=== PATIENT | female | born 1960 | race Caucasian/White ===

== ENCOUNTER → 2017-02-19 | Day surgery (SDC) | payer OTHER ==
[~2017-02-19] VITALS: Ht 167.6 cm; Wt 75.3 kg
[~2017-02-19] MED LIST: ATOR40TA PO; BUPIVACAINE-EPI 0.5%-1:200000 50 ML VIAL. ONE; CHOL100013 PO; CRESTOR10 MG PO; DEXAMETHASONE SOD PHOS 20 MG/5 ML VIAL. ONE; FAMOTIDINE 20 MG/2 ML VIAL ONE; GLYCOPYRROLATE 1 MG/5 ML VIAL. ONE; HYDR-971 PO; HYDROmorphone 2 MG/ML VIAL IV PRN; IV RINGERS,LACTATED 1000ML 1,000 ML IV SCH; LIDOCAINE 1% 1 ML SYRINGE. ID PRN; LIDOCAINE 2% PF Vial for OR 5 ML VIAL. ONE; MIDAZOLAM HCL/PF 2 MG/2 ML VIAL. ONE; MORPHINE SULFATE 2 MG/ML DISP.SYRIN. IV PRN; NEOSTIGMINE METHYLSULFATE 5 MG/5 ML SYRINGE. ONE; ONDANSETRON PF 4 MG/2 ML VIAL. IV PRN; ONDANSETRON PF 4 MG/2 ML VIAL. ONE; PROCHLORPERAZINE 10 MG/2 ML VIAL. IV PRN; PROPOFOL 0 ML IV ONE; PROPOFOL 20 ML IV ONE; SEVOFLURANE 31 TO 60 MINUTES. IH ONE; diphenhydrAMINE 50 MG/ML VIAL ONE; fentaNYL PF VIAL 100 MCG/2 ML VIAL IV PRN; fentaNYL PF VIAL 100 MCG/2 ML VIAL ONE
[2017-02-19 11:54] VITALS: BP 134/65
--- NOTE | 2017-02-19 14:49 | OP ---
DATE OF SURGERY: 02/19/2017 DATE OF SERVICE: 02/19/2017 PREOPERATIVE DIAGNOSES: 1. Chest wall lipoma. 2. Left upper quadrant subcutaneous mass of the abdominal wall. POSTOPERATIVE DIAGNOSES: 1. Chest wall lipoma. 2. Left upper quadrant subcutaneous mass of the abdominal wall. PROCEDURE: 1. Removal of 5 x 3.5 cm chest wall lipoma. 2. Removal of 4.5 x 3 cm left upper quadrant subcutaneous mass. SURGEON: Oracio Noguera MD ANESTHESIA: General. ESTIMATED BLOOD LOSS: See anesthesia record. IV FLUIDS: See anesthesia record. INDICATIONS: The patient is a very pleasant 56-year-old female who presents with the above named masses. She would like to have them excised. DESCRIPTION OF PROCEDURE: After informed consent was obtained, the patient was taken to the operating room and placed in supine position. The sites had been marked with the patient's assistance preoperatively. After adequate induction of general anesthesia, she was prepped and draped in usual sterile fashion. The skin overlying the left upper quadrant subcutaneous mass was injected with local anesthetic. Skin incision was made and the mass was then dissected out circumferentially with cautery. It dissected away from the surrounding tissues easily. It was sent to pathology for examination. It was measured, it measured 4.5 x 3 cm. The wound was irrigated. It was then closed in layers. Bautista's layer was closed with 3-0 Vicryl in a running fashion. Skin was closed with 4-0 Monocryl in subcuticular fashion. Sterile dressings were placed, which consisted of Mastisol, Steri-Strips, and ____ dressing. Then the attention was turned to the chest wall lipoma. This was at the lower edge of the sternum. Skin incision was injected with local anesthetic. Skin incision was made, subcutaneous tissues divided with cautery. The lipoma was encountered. It was dissected out with cautery as well bluntly. It was less well defined, but was able to be dissected out in its entirety. It was sent to pathology for examination. It measured 5 x 3.5 cm. The wound was irrigated. It was hemostatic. It was closed in layers, deep layer was closed with 3-0 Vicryl in running fashion. Skin was closed with 4-0 Monocryl in subcuticular fashion. Sterile dressings were placed. She tolerated the procedure well. There were no apparent complications. She was transferred in stable condition to recovery room. ORACIO NOGUERA MD DR: MARYANA/andi JOB#: [id number] / [id number] CHICHI Andrade MD
--- NOTE | 2017-02-22 14:26 | PATHOLOGY ---
PATHOLOGY REPORT * * * * * * * * FINAL DIAGNOSIS: A. Fibroadipose tissue, chest wall: - Lipoma. B. Fibroadipose tissue, left upper quadrant mass: - Fat necrosis. Comment: There is no evidence of malignancy. (JPM:pit; 02/22/2017) REPORT ELECTRONICALLY SIGNED BY: J Carlos Marc M.D. DATE/TIME: 02/22/2017 14:25 * * * * * * * * GROSS PATHOLOGY: A. Received in formalin labeled "Seng Roldan, chest wall lipoma," is a segment of lobulated fibroadipose tissue measuring 4.0 x 3.5 x 1.5 cm in maximum dimensions. Sectioning reveals homogeneous, bright yellow cut surfaces. Machine Tack Puller tissue is submitted in cassette A1. B. Received in formalin labeled "Seng Roldan, left upper quadrant mass," is a segment of lobulated fibroadipose tissue measuring 3.7 x 2.5 x 2.0 cm in maximum dimensions. Sectioning reveals bright yellow, focally indurated appearance consistent with fat necrosis. Machine Tack Puller tissue is submitted in cassette B1. (JW; 02/19/2017) INITIAL CPT CODE(S): A; 21070 B; 72917 Professional services performed [place] [email or web address] [place] [address] Technical services performed by [facility] at [address] [place] [address] [address], [place] [address]. SPECIMEN(S) RECEIVED: A.Chest wall lipoma 5 x 3.5 cm B.LUQ mass 4.5 x 3 cm CLINICAL HISTORY: LUQ subcutaneous mass, lipoma of anterior chest wall PATIENT: SENG ROLDAN /AGE: 208/06/1960 (Age: 56) PATIENT #: [id number] ALT CASE #: SPECIMEN COLLECTION DATE: 02/19/2017 SPECIMEN RECEIVED DATE: 02/19/2017 [facility] - [address] [place] [address] - PHONE: [phone] * * * END OF REPORT * * *
== END | disposition home or self-care (01) ==
LOC: SURG 07:57
PROVIDERS: ATTEND Surgery
DX: D17.1 Benign lipomatous neoplasm of skin and subcutaneous tissue of trunk (principal); E78.00 Pure hypercholesterolemia, unspecified; Z72.89 Other problems related to lifestyle; Z88.2 Allergy status to sulfonamides; Z91.013 Allergy to seafood
CPT/HCPCS: 11406; 12034; J0690; J1100; J1200; J2250; J2405; J2704; J2710; J3010; J3490; S0028; 88304; J2001

== ENCOUNTER → 2017-03-11 | Outpatient (CLI) | payer OTHER ==
[2017-02-19 11:54] VITALS: BP 134/65
[~2017-03-11] MED LIST changes: -BUPIVACAINE-EPI 0.5%-1:200000 50 ML VIAL. ONE; -DEXAMETHASONE SOD PHOS 20 MG/5 ML VIAL. ONE; -FAMOTIDINE 20 MG/2 ML VIAL ONE; -GLYCOPYRROLATE 1 MG/5 ML VIAL. ONE; -HYDROmorphone 2 MG/ML VIAL IV PRN; -IV RINGERS,LACTATED 1000ML 1,000 ML IV SCH; -LIDOCAINE 1% 1 ML SYRINGE. ID PRN; -LIDOCAINE 2% PF Vial for OR 5 ML VIAL. ONE; -MIDAZOLAM HCL/PF 2 MG/2 ML VIAL. ONE; -MORPHINE SULFATE 2 MG/ML DISP.SYRIN. IV PRN; -NEOSTIGMINE METHYLSULFATE 5 MG/5 ML SYRINGE. ONE; -ONDANSETRON PF 4 MG/2 ML VIAL. IV PRN; -ONDANSETRON PF 4 MG/2 ML VIAL. ONE; -PROCHLORPERAZINE 10 MG/2 ML VIAL. IV PRN; -PROPOFOL 0 ML IV ONE; -PROPOFOL 20 ML IV ONE; -SEVOFLURANE 31 TO 60 MINUTES. IH ONE; -diphenhydrAMINE 50 MG/ML VIAL ONE; -fentaNYL PF VIAL 100 MCG/2 ML VIAL IV PRN; -fentaNYL PF VIAL 100 MCG/2 ML VIAL ONE
[2017-03-11 07:42] LABS: BASO % 1 % (0-3); EOS % 4 % (0-3); HEMATOCRIT 38.9 % (36.0-47.0); HEMOGLOBIN 13.4 g/dL (12.0-15.5); LYMPH # 2.3 x10^3/uL (1.0-4.8); LYMPH % 44 % (24-48); MEAN CORPUSCULAR HEMOGLOBIN 32 pg (25-35); MEAN CORPUSCULAR HGB CONC 34 g/dL (31-37); MEAN CORPUSCULAR VOLUME 92 fL (79-100); MONO % 10 % (0-9); NEUT % 41 % (31-73); PLATELET COUNT 306 x10^3/uL (140-400); RED BLOOD COUNT 4.25 x10^6/uL (3.50-5.40); RED CELL DISTRIBUTION WIDTH 12.9 % (11.5-14.5); WHITE BLOOD COUNT 5.1 x10^3/uL (4.0-11.0)
[2017-03-11 07:50] LABS: ALBUMIN 3.6 g/dL (3.4-5.0); CALCIUM 8.9 mg/dL (8.5-10.1); CREATININE 0.5 mg/dL (0.6-1.0); GFR 128.1; POTASSIUM 4.1 mmol/L (3.5-5.1); TOTAL BILIRUBIN 0.2 mg/dL (0.2-1.0); TOTAL PROTEIN 7.3 g/dL (6.4-8.2)
[2017-03-11 07:56] LABS: CHOLESTEROL/HDL RATIO 3.3
== END | disposition home or self-care (01) ==
LOC: LAB 06:19
PROVIDERS: ATTEND Internal Medicine
DX: Z13.1 Encounter for screening for diabetes mellitus (principal); E78.5 Hyperlipidemia, unspecified
CPT/HCPCS: 36415; 80053; 80061; 82306; 83036; 84443; 85025

== ENCOUNTER → 2019-03-29 | Outpatient (CLI) | payer BC ==
[2017-02-19 11:54] VITALS: BP 134/65
[~2019-03-29] MED LIST changes: +HYDR-3164 PO; -HYDR-971 PO
--- NOTE | 2019-03-30 08:08 | KCIC ---
BILATERAL SCREENING MAMMOGRAM History: Routine screening. History of breast lift and reduction 2017. Comparison: Bilateral mammogram November 20, 2015. Technique: Routine bilateral digital mammogram views were obtained. Findings: Breast Tissue Density B : There are scattered areas of fibroglandular density. The parenchymal pattern is mildly changed compatible with the provided history of breast reduction. There is an asymmetric density in the right breast 5:30 C position. There are no dominant masses, suspicious microcalcifications, or architectural distortion. IMPRESSION: Asymmetric density in the right breast 5:30 C position. Recommend further evaluation with ultrasound. BI-RADS Category 0: Incomplete: Need additional imaging evaluation. The images were reviewed with computer aided detection. Patient information is entered into the reminder system with a target due date for the next screening mammogram. Mammography is the most sensitive method for finding small breast cancers, but it does not detect them all and is not a substitute for careful clinical examination. A negative mammogram does not negate a clinically suspicious finding and should not result in delay in biopsying a clinically suspicious abnormality. "Our facility is accredited by the [employer] Mammography Program." Electronically signed by: Gerhard Cochran MD (03/30/2019 8:05 AM) [id number]
== END | disposition home or self-care (01) ==
LOC: KCIC MAMMO 10:44
PROVIDERS: ATTEND Internal Medicine
DX: Z12.31 Encounter for screening mammogram for malignant neoplasm of breast (principal)
CPT/HCPCS: 77067

== ENCOUNTER → 2019-04-13 | Outpatient (CLI) | payer BC ==
[2017-02-19 11:54] VITALS: BP 134/65
--- NOTE | 2019-04-13 16:47 | KCIC ---
Right breast ultrasound: Reason for examination: Abnormality on screening mammogram. Comparison is made to mammographic exam dated 03/29/2019. Ultrasound examination was performed with attention to the area of mammographic concern and the axilla. In the 6:30 position 7 cm from the nipple and appearing to correlate to the area of mammographic concern, there is a hypoechoic slightly irregularly marginated lesion measuring 9.2 x 7.7 mm in greatest dimension. Further evaluation with ultrasound-guided biopsy is recommended. There are no other cystic or solid lesion seen. No abnormal appearing lymph nodes are seen in the axilla. IMPRESSION: Small nodular lesion at the 6:30 position 7 cm from the nipple in the right breast. Recommend further evaluation with ultrasound-guided biopsy. BI-RADS Category 4: Suspicious. These findings have been discussed with the patient and the patient's physician, Dr. Deisi Ramos office was called twice about these findings on 04/13/2019 at 4:05 and 4:35 pm but the answering service was unable to reach Dr. Ramos office. We will retry tomorrow to reach Dr. Ramos. "Our facility is accredited by the [employer] Mammography Program." This patient's information has been entered into a reminder system for the patient to be notified with the results of her examination and a target date for the next mammogram. Electronically signed by: Rosaura Jung MD (04/13/2019 4:44 PM) [id number]
== END | disposition home or self-care (01) ==
LOC: KCIC US 12:41
PROVIDERS: ATTEND Internal Medicine
DX: N64.89 Other specified disorders of breast (principal)
CPT/HCPCS: 76641